=== PATIENT | female | born 1955 ===

== ENCOUNTER 2017-01-12 12:06 | Emergency (ER) | payer OTHER ==
[~2017-01-12] VITALS: Ht 172.7 cm; Wt 79.5 kg
[2017-01-12 12:06] VITALS: BP 167/80
[2017-01-12] MEDS ORDERED: MAGN1CAP PO (12:23)
[2017-01-12] MEDS ORDERED: CLON0.5T PO (12:23)
[2017-01-12] MEDS ORDERED: PANT40TA2 PO (12:23)
[2017-01-12] MEDS ORDERED: VENL37TA PO (12:23)
[2017-01-12] MEDS ORDERED: ABIL1TAB13 PO (12:23)
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
== END 2017-01-12 14:27 | disposition left against medical advice (07) ==
LOC: M ED 12:06
DX: Z53.21 Procedure and treatment not carried out due to patient leaving prior to being seen by health care provider (principal)